=== PATIENT | male | born 1945 | race Caucasian/White ===

== ENCOUNTER 2019-02-27 17:33 | Emergency (ER) | payer OTHER, SELFPAY ==
[2019-02-27 17:34] VITALS: BP 150/71; PULSE 65; RESP 16; TEMP 36.4; O2SAT 98; BMI 25.2
--- NOTE | 2019-02-27 18:08 | EKG12_ITS ---
Test Reason : CP Blood Pressure : / mmHG Vent. Rate : 064 BPM Atrial Rate : 064 BPM P-R Int : 136 ms QRS Dur : 112 ms QT Int : 428 ms P-R-T Axes : 069 -74 034 degrees QTc Int : 441 ms Normal sinus rhythm Low voltage QRS Incomplete right bundle branch block Left anterior fascicular block Abnormal ECG Confirmed by SAMEERA GODINEZ, ZULEMA ([id number]), film editor SAY ALVARADO ([id number]) on 03/01/2019 10:07:28 AM Referred By: [facility] Confirmed By:OSMEL BRASHER MD
--- NOTE | 2019-02-27 18:25 | RAD_ITS ---
STUDY: X-RAY CHEST REASON FOR EXAM: Male, 73 years old. Chest pain TECHNIQUE: Frontal and lateral views of the chest. COMPARISON: None. FINDINGS: There is hyperinflation of the lungs consistent with chronic obstructive lung disease (COPD). No infiltrates or effusions. There is no demonstrated pleural abnormality. Normal size heart. Normal mediastinum and dariela. There is prominence of the pulmonary hilar arteries without peripheral pulmonary vascular congestion, suggesting pulmonary hypertension. Normal visualized aortic arch and descending thoracic aorta. Normal visualized thoracic spine. Normal visualized ribs, clavicles, and shoulders. There is no demonstrated abnormality of the visualized soft tissue structures of the upper abdomen. RAD/Chest PA and Lateral IMPRESSION: There are findings consistent with COPD. There is no evidence of acute chest disease. Electronically Signed: Eddi Shay MD at 18:46 EST , Service support ,
[2019-02-27 18:34] LABS: Absolute Lymphocyte Count 1.87 X10^3/uL (0.83-4.51); Basophil# 0.03 X10^3/uL; Basophil% 0.4 % (0-1); Eosinophil# 0.16 X10^3/uL; Eosinophils% 2.4 % (0-5); Hematocrit 43.9 % (40-54); Hemoglobin 14.5 g/dL (13.0-16.5); Lymphocyte # 1.87 X10^3/ul (4.0); Lymphocyte % 27.7 % (19-41); Mean Corpuscular Volume 90.7 fL (80-94); Mean Platelet Vol. 10.2 fl (6.2-12.0); Monocyte# 0.65 X10^3/uL; Monocyte% 9.6 % (0-10); NRBC Flagged by Analyzer 0 % (0-5); Neutrophil # 4.02 X10^3/uL (2.7-7.7); Neutrophil % 59.6 % (47-70); Platelet Count 201 K/mm3 (150-450); RBC Distribution Width CV 11.9 % (11.6-14.6); Red Blood Count 4.84 M/mm3 (4.6-6.2); White Blood Count 6.8 K/mm3 (4.4-11.0)
[2019-02-27 18:45] LABS: Anion Gap 3 (5-15); BUN 29 mg/dL (7-18); BUN/Creat Ratio 27.1 RATIO (10-20); Calcium,Total 8.8 mg/dL (8.5-10.1); Chloride 109 mmol/L (98-107); Creatinine, Serum 1.07 mg/dL (0.70-1.30); EST Glomerular Filtration Rate 72 mL/min (>60); Est Glom Filt Rate - Afr Amer 87 mL/min (>60); Estimated Creatinine Clearance 66.46 ml/min; Glucose 101 mg/dL (74-106); Potassium 3.8 mmol/L (3.5-5.1); Sodium Level 140 mmol/L (136-145)
[2019-02-27 19:36] VITALS: BP 117/65; PULSE 61; RESP 15; O2SAT 98
--- NOTE | 2019-02-27 19:38 | ED.RN ---
PT DECLINED NITRO SERIES
[2019-02-27 20:00] VITALS: BP 118/74; PULSE 56; RESP 14; O2SAT 97
[2019-02-27 21:00] VITALS: BP 121/71; PULSE 57; RESP 15; O2SAT 96
--- NOTE | 2019-02-27 21:09 | ED.VISSUMM ---
- ER Visit Summary Date of Service: 02/27/19 Chief Complaint: Chest pain History of Present Illness: The patient is a 73 M who presents with chest pain that has been intermittent for the past 5 days. Patient states the pain began while he was walking. Patient states the pain is a dull ache. Patient states pain is over the left upper chest. Patient states nothing makes it better or worse. Patient denies any nausea or vomiting. Patient denies any diaphoresis. Patient denies any shortness of breath or cough. Patient does admit to some tingling in the fingers of his left hand over the fourth and fifth digits. Patient also admits to some neck pain. Patient has a history of hypercholesterolemia and history of coronary artery disease with a stent. Patient quit smoking. Patient has no PE risk factors. Physical Examination: Vital signs are stable. Patient is afebrile. Patient is in no acute distress. Oral mucosa is pink and moist. Neck is supple. Trachea is midline. There is no JVD. Heart was regular rate and rhythm. Lungs are clear and equal bilaterally. There is some tenderness over the left upper chest wall that reproduces his pain. Abdomen is soft. Bowel sounds are normal. There is no tenderness. Radial nerves II through XII are intact. There are no focal motor or sensory deficits noted. Test Results: EKG showed normal sinus rhythm with a rate of 64. There is a right bundle branch block pattern. There is a left anterior fascicular block noted. There are no prior EKGs available for comparison. PA and lateral chest x-ray was obtained. There are chronic changes consistent with COPD. There are no acute ST or T wave changes. CBC and basic metabolic profile were within normal limits. Troponin was normal. Emergency Department Course and Treatment: Patient was given aspirin here. Patient was feeling better on reevaluation. Given that his symptoms have been present for 5 days and his troponin is still normal, I do not feel that this is cardiac in nature. However, due to his risk factors, patient was recommended to follow-up with his primary care physician in 3 to 5 days for further evaluation. Patient understands and is agreeable with the plan. All questions were answered. Disposition: Discharge home Impression: Chest pain of uncertain etiology This note was generated with [employer] software. It may contain incorrect words, spelling, and punctuation that were not noted in review of the chart prior to signing ED Disposition - Plan for ED Patient: Disposition: Home or Assisted Living Diagnosis: Chest pain of uncertain etiology Instructions: CHEST PAIN, Uncertain Cause Referrals: [facility] [Primary Care Provider] - 3-5 Days
[2019-02-27 21:19] VITALS: BP 114/66; PULSE 51; RESP 20; O2SAT 97
== END 2019-02-27 21:20 | disposition home or self-care (01) ==
PROVIDERS: Emergency Provider Emergency Medicine
DX: R07.9 Chest pain, unspecified (principal); I25.10 Atherosclerotic heart disease of native coronary artery without angina pectoris; E78.00 Pure hypercholesterolemia, unspecified; Z95.5 Presence of coronary angioplasty implant and graft; Z87.891 Personal history of nicotine dependence; Z79.899 Other long term (current) drug therapy
CPT/HCPCS: 71046; 80048; 84484; 85025; 93005; 99285

== ENCOUNTER → 2021-05-05 05:55 | Outpatient (CLI) | payer OTHER, SELFPAY ==
--- NOTE | 2021-05-05 17:11 | STRESSREP_ITS ---
Stress Test Report Pharmacologic [facility] cardial perfusion stress test. 76-year-old man with a history of chest pain pain Stress protocol: Resting KG demonstrates sinus bradycardia with a rate of 56 bpm normal intervals are noted resting blood pressure is 132/76 mmHg. 0.4 mg of regadenoson was infused per usual protocol followed by rapid intravenous saline flush injection continuous EKG monitoring was performed. The maximum heart rate attained was 80 bpm which was 55% of maximum predicted heart rate the maximum workload was 1 metabolic equivalent. At rest or during peak infusion there were no ST or T wave changes noted to suggest abnormal flow reserve. Myocardial perfusion protocol. 11.9 mCi of technetium 99m sestamibi was injected at rest. 0.4 mg of regadenoson was infused per usual protocol. At peak infusion 33.9 mCi of technetium 99m sestamibi was injected stress images were obtained stress and rest images were reconstructed and compared in the short axis vertical long and horizontal long axis. Gated images were also obtained. Perfusion SPECT analysis: Review of the stress images demonstrate normal uptake of tracer noted in all areas of the myocardium. The resting images similarly demonstrate normal uptake of tracer noted in all areas of the myocardium. No areas of reversibility are noted to suggest ischemia and no previous infarct is noted. Gated SPECT analysis: The gated ejection fraction is 76%. Conclusion: Normal pharmacologic myocardial perfusion stress test. Preserved ejection fraction.
== END ==
DX: R07.9 Chest pain, unspecified (principal)
CPT/HCPCS: 78452; 93017; A9500; A4216; J2785

== ENCOUNTER 2024-08-20 15:13 | Emergency (ER) | payer OTHER, SELFPAY ==
[2024-08-20 15:14] VITALS: BP 149/130; PULSE 55; RESP 16; TEMP 37; O2SAT 98; BMI 16.3
--- NOTE | 2024-08-20 15:52 | EX.ED.GENINJ ---
HPI History of Present Illness Chief Complaint: Laceration Narrative Narrative: Chief complaint and HPI: Left forearm laceration. 79-year-old male with past medical history of HTN, HLD presents for evaluation of laceration to the left volar aspect of the distal forearm. Patient states he was working on a lawnmower when the recoil slid across to his arm. States it originally bled but he was able to control the bleeding. Denies any numbness or tingling. Denies injury elsewhere. States his last tetanus was within 5 years. Review of systems: See HPI Medications: As listed on the chart Allergies: As listed on the chart PFSH: Per chart Vital signs: As listed on the chart. Reviewed. Physical exam: Gen: A&O x3, NAD Head: Normocephalic, atraumatic Eyes: No sclera icterus, conjunctiva clear ENT: Moist mucous membranes CV: Regular rate Resp: Nonlabored respiration Musc: Full ROM of the left upper extremity, patient has a V-shaped laceration to the volar aspect of the distal left forearm, no active bleeding, no foreign body, radial pulse +2, good capillary refill, sensation intact, no deformity, nontender to palpation Neuro: Alert, oriented, grossly intact Psych: Cooperative, appropriate mood and affect PFS PFS Home Medications ?Medication ?Instructions ?Recorded ?Last Taken ?Type metoprolol tartrate 25 mg tablet 12.5 mg PO BID 02/27/19 Unknown History simvastatin 40 mg tablet 40 mg PO QHS 02/27/19 Unknown History Allergy/AdvReac Type Severity Reaction Status Date / Time No Known Allergies Allergy Verified 08/20/24 15:16 Social History Smoking Status: Former smoker EXAM Physical Exam Const Vital Signs: 08/20/24 15:14 Temperature 98.6 F Temperature Source Oral Pulse Rate 55 L Respiratory Rate 16 Blood Pressure 149/130 H Blood Pressure Mean 136 Pulse Ox 98 Oxygen Delivery Method Room Air MDM MDM MDM Narrative Medical decision making narrative: 79-year-old male with past medical history of HTN, HLD presents for evaluation of laceration to the left volar aspect of the distal forearm. Obtained from working on a lawnmower. Up-to-date on tetanus. Laceration is V-shaped, see HPI. It will require suture repair. Laceration Repair Indication: Laceration Location: 2 cm V-shaped laceration Consent: Risks, benefits, and alternatives discussed with patient and consent obtained Procedure: A time out was performed. The area was prepped and draped in the usual sterile fashion. Local anesthesia was achieved using 1% Lidocaine with epinephrine. The wound was copiously irrigated. 4 sutures were placed using 4-0 Ethilon in an interrupted fashion. The estimated blood loss was minimal. A dressing was applied to the area with Bacitracin. The patient tolerated the procedure well without complications. Foreign Material: None Debridement: None Follow-up: Anticipatory guidance, as well as standard post-procedure care, was explained. Return precautions are given. Follow-up visit set for suture removal and evaluation of the laceration. Impression: 1. 2 cm V shaped left forearm laceration, status post suture repaired Discharge Plan Triage Chief Complaint: Laceration ED Provider: Leonardo Harden Dx/Rx/DC Orders Prescriptions: No Action simvastatin 40 MG tablet 40 mg PO QHS metoprolol tartrate 25 MG tablet 12.5 mg PO BID [facility] Care Provider: [facility] Referrals: [facility] [Primary Care Provider] - Print Language: Telugu
[2024-08-20] MEDS: Lidocaine 1% /Epi 1:100 (20ml) 20 ML Vial INFILT (16:02)
== END 2024-08-20 16:36 | disposition home or self-care (01) ==
PROVIDERS: Emergency Provider Surgery; Visit Provider Surgery
DX: S51.812A Laceration without foreign body of left forearm, initial encounter (principal); W27.1XXA Contact with garden tool, initial encounter; I10 Essential (primary) hypertension; E78.5 Hyperlipidemia, unspecified; Z87.891 Personal history of nicotine dependence; Z79.899 Other long term (current) drug therapy
CPT/HCPCS: 12001; 99283